=== PATIENT | male | born 1975 | race Caucasian/White ===

== ENCOUNTER 2018-03-01 08:16 | Day surgery (SDC) | payer OTHER ==
[~2018-03-01] VITALS: Ht 180.3 cm; Wt 93.0 kg
[2018-03-01] MEDS ORDERED: fentaNYL CITRATE/PF 100 MCG/2 ML AMP IVP PRN ×2 (10:45)
[2018-03-01] MEDS ORDERED: ONDANSETRON HCL 4 MG/2 ML VIAL IVP PRN (10:45)
[2018-03-01] MEDS ORDERED: SEVOFLURANE 15 MIN GAS INH ONE (12:05)
[2018-03-01] MEDS ORDERED: fentaNYL CITRATE/PF 100 MCG/2 ML AMP ONE (12:05)
[2018-03-01] MEDS ORDERED: WATER FOR IRRIGATION,STERILE 1,000 ML IRRIG.SOLN IR ONE (12:05)
[2018-03-01] MEDS ORDERED: ONDANSETRON HCL 4 MG/2 ML VIAL ONE (12:05)
[2018-03-01] MEDS ORDERED: NEOSTIGMINE METHYLSULFATE 1 MG/ML, 10 ML VIAL ONE (12:05)
[2018-03-01] MEDS ORDERED: EPINEPHrine 1 MG/ML AMP ONE (12:05)
[2018-03-01] MEDS ORDERED: LR 1,000 ML IV.SOLN IV ONE (12:05)
[2018-03-01] MEDS ORDERED: OXYMETAZOLINE HCL 0.05% NASAL SPRAY NS ONE (12:05)
[2018-03-01] MEDS ORDERED: MIDAZOLAM HCL 5 MG/ML VIAL (VERSED) IV ONE (12:05)
[2018-03-01] MEDS ORDERED: LIDOCAINE/EPI 1% 1:100000 20 ML VIAL INJ ONE (12:05)
[2018-03-01] MEDS ORDERED: PROPOFOL 200MG/ 20ML VIAL (DIPRIVAN) IV ONE (12:05)
[2018-03-01] MEDS ORDERED: NS IRRIG SOLN 1000 ML IR ONE (12:05)
[2018-03-01] MEDS ORDERED: MUPIROCIN 2% TOPICAL OINTMENT 22 GM ONE (12:05)
[2018-03-01] MEDS ORDERED: NS 250 ML IV.SOLN IV ONE (12:05)
[2018-03-01] MEDS ORDERED: ROCURONIUM BROMIDE 10 MG/ML (ZEMURON) ONE (12:05)
[2018-03-01] MEDS ORDERED: GLYCOPYRROLATE 0.2 MG/ML VIAL ONE (12:05)
[2018-03-01] MEDS ORDERED: HYDROcodone/ACETAMIN 5-325 MG TAB (NORCO/ VICODIN) PO ONE (15:00)
[2018-03-01] MEDS ORDERED: HYDROcodone/ACETAMIN 5-325 MG TAB (NORCO/ VICODIN) ONE (15:08)
[2018-03-01] MEDS ORDERED: hydrALAZINE HCL 20 MG/ML VIAL IVP ONE (15:30)
[2018-03-01] MEDS ORDERED: hydrALAZINE HCL 20 MG/ML VIAL ONE (15:46)
[2018-03-01 20:08] VITALS: BP_SYST 132
== END 2018-03-01 16:35 | disposition home or self-care (01) ==
LOC: SDS 08:16 → SMU 08:17 → EDSEX 10:30 → SDS 16:35
PROVIDERS: ATTEND Otolaryngology
DX: J34.2 Deviated nasal septum (principal); J32.9 Chronic sinusitis, unspecified; J34.89 Other specified disorders of nose and nasal sinuses; E66.3 Overweight
CPT/HCPCS: 30140; 30520; 31267; 88305; 88311; J0171; J0360; J2250; J2405; J2704; J2710; J3010; J3490; J7050; J7120